=== PATIENT | female | born 2000 | race Caucasian/White ===

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

== ENCOUNTER 2019-04-06 11:16 | Emergency (ER) | payer OTHER ==
[2019-04-06 11:33] VITALS: BP 124/75; PULSE 98; TEMP 98.4; BMI 24.9
--- NOTE | 2019-04-06 12:03 | PDOC ---
History of Present Illness - General Chief Complaint: Rash Stated Complaint: HIVES Time Seen by Provider: 04/06/19 11:57 History Source: Patient - History of Present Illness Initial Comments: 04/06/19 12:40 Chief complaint: Allergic reaction Patient 19-year-old female with history of asthma, acne on minocycline for 3 weeks who states that about a week ago or 2 she started getting a clear bump on her wrist, put ice, she felt it got worse and it bruised and it went away. Patient then developed itching to her upper body that would come and go with some hives. She also felt that her asthma was being impacted and using her inhaler. No fever and patient does not look acutely ill. Patient has a doctor but has not discussed this with her doctor. Patient has prior episodes of allergic reaction in the EMR related to antibiotic. GENERAL/CONSTITUTIONAL: No fever, weakness. dizziness HEAD, EYES, EARS, NOSE AND THROAT: No change in vision. No ear pain or discharge. No sore throat. CARDIOVASCULAR: No chest pain RESPIRATORY: No shortness of breath or cough GASTROINTESTINAL: No pain, nausea, vomiting, diarrhea or constipation GENITOURINARY: No dysuria MUSCULOSKELETAL: No neck or back pain SKIN: +rash NEUROLOGIC: No headache, vertigo, loss of consciousness, or loss of sensation. GENERAL: The patient is awake, alert, and fully oriented, in no acute distress. HEAD: Normal with no signs of trauma. EYES: Pupils equal, round and reactive to light, sclera anicteric, conjunctiva clear. ENT: pharynx: no erythema, no exudate, uvula midline NECK: supple CHEST: clear, nontender, rr ABD: soft, nontender BACK: no tenderness or signs of injury EXTREMITIES: Normal range of motion, no edema. NEUROLOGICAL: Normal speech, normal gait. SKIN: Warm, Dry, no hives but has redness to the areas where she scratched as an hypersensitivity Past History - Past Medical History Allergies/Adverse Reactions: Allergies Allergy/AdvReac Type Severity Reaction Status Date / Time Sulfa (Sulfonamide Allergy Severe Rash Verified 04/09/18 19:29 Antibiotics) Home Medications: Ambulatory Orders traMADol HCL [Ultram -] 50 mg PO BID #10 tablet MDD 2 05/28/18 predniSONE [Deltasone -] 40 mg PO DAILY #10 tablet 04/06/19 Asthma: Yes COPD: No - Immunization History Immunization Up to Date: Yes - Psycho Social/Smoking Cessation Hx Smoking History: Never smoked Have you smoked in the past 12 months: No Information on smoking cessation initiated: No Hx Alcohol Use: No Drug/Substance Use Hx: No Substance Use Type: None *Physical Exam - Vital Signs Last Vital Signs Temp Pulse Resp BP Pulse Ox 98.4 F 98 H 20 124/75 100 04/06/19 11:31 04/06/19 11:31 04/06/19 11:31 04/06/19 11:31 04/06/19 11:31 Medical Decision Making - Medical Decision Making 04/06/19 12:43 Patient with allergic skin reaction, who states it is also bothering her asthma. Lungs are clear. Patient has hypersensitivity where she has been scratching but no obvious hives although she has pictures. Patient will be started on prednisone. Patient started minocycline about 3 weeks ago. She needs to discuss this with her doctor since it is not clear this is causing the problem since she has asthma and allergies in the past. Patient is in no acute distress. The Padma has been helping the hives and she will continue to take that. She has an inhaler, does not need a refill and knows how to use that. And she will be started on prednisone. I told her to call her doctor today to set up an appointment for early next week I also encouraged her to get allergy tested after this episode Discussed issues, findings, results, applicable medications and treatments and follow-up. All these were understood and all questions were answered Discharge - Discharge Information Problems reviewed: Yes Clinical Impression/Diagnosis: Allergic reaction Qualifiers: Encounter type: initial encounter Qualified Code(s): T78.40XA - Allergy, unspecified, initial encounter Condition: Stable Disposition: HOME - Admission No - Additional Discharge Information Prescriptions: predniSONE [Deltasone -] 40 mg PO DAILY #10 tablet - Follow up/Referral Referrals: ON STAFF,NOT [Primary Care Provider] - - Patient Discharge Instructions Patient Printed Discharge Instructions: DI for General Allergic Reactions Additional Instructions: You can continue to take the Padma daily as long as it is working. If it is not working you can take benadryl 25-50 mg every 4 hours for itching take prednisone 40 mg once daily for anther 4 days, start tomorrow take pepcid 20 mg once daily which will help with the reaction and protect your stomach for any upset from the prednisone return to the er if short of breath, difficulty breathing, or getting worse. otherwise follow up with your doctor in 2-3 days - Post Discharge Activity
== END 2019-04-06 12:17 | disposition home or self-care (01) ==
LOC: JERFT 11:16
DX: T78.40XA Allergy, unspecified, initial encounter (principal); Z88.2 Allergy status to sulfonamides; J45.909 Unspecified asthma, uncomplicated
CPT/HCPCS: 99281-25

== ENCOUNTER 2019-04-13 23:17 | Emergency (ER) | payer OTHER ==
[2019-04-13 23:23] VITALS: BP 119/78; PULSE 89; TEMP 98.2; BMI 24.9
[2019-04-14] MEDS ORDERED: predniSONE 20 MG TABLET (UD) PO ONE (01:16)
[2019-04-14] MEDS ORDERED: FAMOTIDINE 10 MG TABLET PO ONE (01:17)
[2019-04-14] MEDS ORDERED: predniSONE 20 MG TABLET (UD) ONE (01:23)
[2019-04-14] MEDS ORDERED: FAMOTIDINE 20 MG TABLET ONE (01:23)
--- NOTE | 2019-04-14 01:25 | PDOC ---
History of Present Illness - General Chief Complaint: Rash Stated Complaint: RASH Time Seen by Provider: 04/14/19 01:07 History Source: Patient Exam Limitations: No Limitations - History of Present Illness Initial Comments: 04/14/19 01:20 19-year-old female with history of asthma, eczema seen here April 06, 2019 for hives. She had been on minocycline for acne treatments for approximately 3 weeks. Has discontinued this medication since hives., Has been taking Padma without much relief. Presents to ED stating itching and hives have worsened over the past 3 days. Denies shortness of breath, difficulty breathing, nausea , new medications, use of new soaps, detergents, new pets. Has a scheduled PMD follow-up for April 18, 2019. ROS: GENERAL/CONSTITUTIONAL: No fever, chills, weakness, dizziness HEAD, EYES, EARS, NOSE AND THROAT: No changes in vision, No ear pain or discharge, No sore throat CARDIOVASCULAR: No chest pain RESPIRATORY: No shortness of breath or cough GASTROINTESTINAL: No pain, nausea, vomiting, diarrhea or constipation GENITOURINARY: No dysuria MUSCULOSKELETAL: No neck or back pain SKIN: Rash and itching NEUROLOGIC: No headache, vertigo, loss of consciousness, or loss of sensation PE: GENERAL: well-appearing, NAD, speaking full sentences HEAD: NCAT EYES: Pupils equal, round and reactive to light, sclera anicteric, conjunctiva clear ENT: pharynx: no erythema, no exudate, uvula midline NECK: supple CHEST: nontender RESP: clear, no w/r/r CARDIO: rrr, no m/g/r ABD: +BS, soft, nontender, non distended BACK: no midline spinal ttp, no CVAT EXTREMITIES: Normal range of motion, no edema NEUROLOGICAL: Normal speech, normal gait SKIN: Scattered small hives to upper extremities, right side of abdomen, bilateral upper extremities sparing palms and soles of feet, warm, Dry Is this a multiple visit Asthma Patient?: No Past History - Past Medical History Allergies/Adverse Reactions: Allergies Allergy/AdvReac Type Severity Reaction Status Date / Time Sulfa (Sulfonamide Allergy Severe Rash Verified 04/09/18 19:29 Antibiotics) Home Medications: Ambulatory Orders traMADol HCL [Ultram -] 50 mg PO BID #10 tablet MDD 2 03/30/19 Prednisone 40 mg PO DAILY 4 Days #4 tablet 04/14/19 Asthma: Yes COPD: No - Immunization History Immunization Up to Date: Yes - Psycho Social/Smoking Cessation Hx Smoking History: Never smoked Have you smoked in the past 12 months: No Information on smoking cessation initiated: No Hx Alcohol Use: No Drug/Substance Use Hx: No Substance Use Type: None *Physical Exam - Vital Signs Last Vital Signs Temp Pulse Resp BP Pulse Ox 98.2 F 89 18 119/78 100 04/13/19 23:21 04/13/19 23:21 04/13/19 23:21 04/13/19 23:21 04/13/19 23:21 Medical Decision Making - Medical Decision Making 04/14/19 01:23 19-year-old female with history of asthma, eczema and recently treated at this ED on April 06, 2019 for hives presents complaining of worsening hives and itching over the past 3 days. Denies shortness of breath, difficulty breathing. IM Benadryl 50 mg P.o. Pepcid 20 mg P.o. prednisone 40 mg Note for work provided Continue taking Padma daily Advised patient to follow-up with PMD and cash applications manager Discharge - Discharge Information Problems reviewed: Yes Clinical Impression/Diagnosis: Hives Condition: Stable Disposition: HOME - Admission No - Follow up/Referral Referrals: ON STAFF,NOT [Primary Care Provider] - - Patient Discharge Instructions Additional Instructions: Take prednisone 40 mg daily for 4 days Take Benadryl 25 mg every 6 hours as needed Take Padma 1 tablet daily Keep your appointment with your primary care doctor for next week Follow-up with a cash applications manager and independent living specialist Return to ED if worsening symptoms - Post Discharge Activity Work/Back to School Note: Back to Work
== END 2019-04-14 01:36 | disposition home or self-care (01) ==
LOC: JER 23:17
PROC: 3E023GC Introduction of Other Therapeutic Substance into Muscle, Percutaneous Approach (ICD-10-PCS; principal; 2019-04-13)
DX: L50.9 Urticaria, unspecified (principal); Z87.09 Personal history of other diseases of the respiratory system; Z87.2 Personal history of diseases of the skin and subcutaneous tissue
CPT/HCPCS: 99284-25

== ENCOUNTER 2020-10-02 21:34 | Emergency (ER) | payer OTHER ==
[2020-10-02 22:00] VITALS: BP 133/84; PULSE 120; TEMP 98.7; BMI 27.6
[2020-10-02] MEDS ORDERED: ACETAMINOPHEN WITH CODEINE 300MG/30MG TABLET PO ONE (22:21)
[2020-10-02] MEDS ORDERED: ACETAMINOPHEN WITH CODEINE 300MG/30MG TABLET ONE (22:33)
[2020-10-02 23:03] LABS: BASO % 0.6 % (0-2.0); EOS % 3.1 % (0-4.5); HEMATOCRIT 42.9 % (32.4-45.2); HEMOGLOBIN 14.4 GM/dL (10.7-15.3); LYMPH % 29.7 % (8-40); MCH 28.1 pg (25.7-33.7); MCHC 33.6 g/dl (32.0-36.0); MEAN CELL VOLUME 83.6 fl (80-96); MEAN PLT VOLUME 8.6 fl (7.5-11.1); NEUT % 53.6 % (42.8-82.8); PLATELET COUNT 283 10^3/uL (134-434); RBC 5.13 M/mm3 (3.60-5.2); RDW 13.1 % (11.6-15.6); WHITE BLOOD COUNT 8.1 K/mm3 (4.0-10.0)
[2020-10-02 23:25] LABS: CALCIUM 8.9 mg/dL (8.5-10.1)
[2020-10-02 23:26] LABS: ALBUMIN 4.1 g/dl (3.4-5.0); BLOOD UREA NITROGEN 11.5 mg/dL (7-18)
[2020-10-02 23:31] LABS: BILIRUBIN,TOTAL 0.2 mg/dL (0.2-1)
[2020-10-02] MEDS ORDERED: LACTATED RINGERS SOLUTION 1000 ML INFUS.BAG IV ONE (23:38)
== END 2020-10-03 02:03 | disposition home or self-care (01) ==
LOC: JER 21:34
DX: R05 Cough (principal); R09.1 Pleurisy
CPT/HCPCS: 36415; 71275-TC; 80053; 84703; 85025; 93005; 93010; 99284-25; C9803; Q9967; U0003; U0005

== ENCOUNTER 2021-02-18 22:30 | Emergency (ER) | payer OTHER ==
[2021-02-18 22:41] VITALS: BP 119/77; PULSE 110; TEMP 99.2; BMI 27.6
[2021-02-18] MEDS ORDERED: ACETAMINOPHEN 325 MG TABLET (FP) PO ONE (23:48)
[2021-02-19] MEDS ORDERED: ACETAMINOPHEN 325 MG TABLET (FP) ONE (00:06)
== END 2021-02-19 01:22 | disposition home or self-care (01) ==
LOC: JER 22:30
DX: J06.9 Acute upper respiratory infection, unspecified (principal); Z11.52 Encounter for screening for COVID-19
CPT/HCPCS: 87651; 87804; 99283-25; C9803; U0003; U0005

== ENCOUNTER 2021-10-19 22:41 | Emergency (ER) | payer OTHER ==
[2021-10-19 23:02] VITALS: BP 117/74; PULSE 85; RESP 20; TEMP 98.2; BMI 27.1
[2021-10-20] MEDS ORDERED: SODIUM CHLORIDE 1,000 ML IV STA (00:08)
[2021-10-20] MEDS ORDERED: METOCLOPRAMIDE HCL INJECTION 10 MG/2 ML VIAL IVPUSH ONE (00:08)
[2021-10-20] MEDS ORDERED: ACETAMINOPHEN 1000 MG/100 ML BAG IVPB ONE (00:08)
[2021-10-20] MEDS ORDERED: ACETAMINOPHEN INJECTION 100 ML IVPB ONE (01:04)
[2021-10-20] MEDS ORDERED: METOCLOPRAMIDE HCL INJECTION 10 MG/2 ML VIAL ONE (01:04)
[2021-10-20] MEDS ORDERED: LIDOCAINE 5% TOPICAL PATCH TP ONE (01:36)
[2021-10-20] MEDS ORDERED: KETOROLAC TROMETHAMINE 15 MG/ML VIAL IVPUSH ONE (01:45)
[2021-10-20] MEDS ORDERED: KETOROLAC TROMETHAMINE 15 MG/ML VIAL ONE (01:58)
[2021-10-20] MEDS ORDERED: LIDOCAINE 5% TOPICAL PATCH ONE (01:59)
[2021-10-20] MEDS ORDERED: LIDOCAINE PATCH REMOVAL MC SCH (22:00)
== END 2021-10-20 03:46 | disposition home or self-care (01) ==
LOC: JER 22:41
PROC: 3E033GC Introduction of Other Therapeutic Substance into Peripheral Vein, Percutaneous Approach (ICD-10-PCS; principal; 2021-10-19)
DX: R51.9 Headache, unspecified (principal)
CPT/HCPCS: 84703; 96361; 96372; 96375; 99284-25

== ENCOUNTER 2021-10-23 00:35 | Emergency (ER) | payer OTHER ==
[2021-10-23 01:24] VITALS: BP 124/84; PULSE 96; RESP 15; TEMP 98.5; BMI 27.1
[2021-10-23] MEDS ORDERED: ACETAMINOPHEN 500 MG TABLET (FP) PO ONE (02:12)
[2021-10-23] MEDS ORDERED: ACETAMINOPHEN 500 MG TABLET (FP) ONE (02:32)
[2021-10-23] MEDS ORDERED: METOCLOPRAMIDE HCL INJECTION 10 MG/2 ML VIAL IVPUSH ONE (02:48)
[2021-10-23] MEDS ORDERED: SODIUM CHLORIDE 1,000 ML IV STA (02:48)
[2021-10-23] MEDS ORDERED: DEXAMETHASONE SOD PHOSPHATE 10 MG/1 ML VIAL IVPUSH ONE (02:49)
[2021-10-23] MEDS ORDERED: METOCLOPRAMIDE HCL INJECTION 10 MG/2 ML VIAL ONE (03:03)
[2021-10-23] MEDS ORDERED: DEXAMETHASONE SOD PHOSPHATE 10 MG/1 ML VIAL ONE (03:03)
== END 2021-10-23 05:50 | disposition home or self-care (01) ==
LOC: JER 00:35
PROC: 3E0333Z Introduction of Anti-inflammatory into Peripheral Vein, Percutaneous Approach (ICD-10-PCS; principal; 2021-10-23)
PROC: 3E033GC Introduction of Other Therapeutic Substance into Peripheral Vein, Percutaneous Approach (ICD-10-PCS; 2021-10-23)
PROC: 3E033GC Introduction of Other Therapeutic Substance into Peripheral Vein, Percutaneous Approach (ICD-10-PCS; 2021-10-23)
PROC: 3E0337Z Introduction of Electrolytic and Water Balance Substance into Peripheral Vein, Percutaneous Approach (ICD-10-PCS; 2021-10-23)
DX: R51.9 Headache, unspecified (principal)
CPT/HCPCS: 70450-TC; 96361; 96374; 96375; 99284-25; J1100

== ENCOUNTER 2022-09-04 18:03 | Emergency (ER) | payer OTHER ==
[2022-09-04 18:10] VITALS: BP 105/67; PULSE 105; RESP 18; TEMP 100.4; BMI 27.1
[2022-09-04] MEDS ORDERED: IBUPROFEN 100 MG/5 ML UNIT DOSE CUPS PO ONE (18:55)
[2022-09-04] MEDS ORDERED: MAG HYDROX/ALH/SMC/DPHA/LIDO 240 ML MOUTHWASH MM STA (19:12)
[2022-09-04] MEDS ORDERED: PENICILLIN G BENZATHINE 1,200,000 UNIT/2 ML PFS IM ONE (19:36)
[2022-09-04] MEDS ORDERED: IBUPROFEN 100 MG/5 ML UNIT DOSE CUPS ONE (20:04)
[2022-09-05] MEDS ORDERED: MAG HYDROX/ALH/SMC/DPHA/LIDO 240 ML MOUTHWASH MM SCH
== END 2022-09-04 20:22 | disposition home or self-care (01) ==
LOC: JERFT 18:03
DX: J02.0 Streptococcal pharyngitis (principal); R50.9 Fever, unspecified; M79.0 Rheumatism, unspecified; Z20.822 Contact with and (suspected) exposure to COVID-19
CPT/HCPCS: 87651; 96372; 99284-25

== ENCOUNTER 2022-10-26 16:41 | Emergency (ER) | payer OTHER ==
[2022-10-26 17:00] VITALS: BP 119/67; PULSE 93; RESP 18; TEMP 99.2; BMI 27.7
[2022-10-26] MEDS ORDERED: SODIUM CHLORIDE 0.9% 500 ML INFUS.BAG IV ONE ×2 (18:07→20:06)
[2022-10-26] MEDS ORDERED: ACETAMINOPHEN 1000 MG/100 ML BAG IVPB ONE (18:09)
[2022-10-26] MEDS ORDERED: ACETAMINOPHEN INJECTION 100 ML IVPB ONE (18:27)
[2022-10-26 18:54] LABS: BASO % 0.6 % (0-2.0); EOS % 1.9 % (0-4.5); HEMATOCRIT 40.4 % (32.4-45.2); HEMOGLOBIN 13.2 GM/dL (10.7-15.3); LYMPH % 27.9 % (8-40); MCH 28.2 pg (25.7-33.7); MCHC 32.6 g/dl (32.0-36.0); MEAN CELL VOLUME 86.5 fl (80-96); MEAN PLT VOLUME 8.4 fl (7.5-11.1); MONO % 8.6 % (3.8-10.2); PLATELET COUNT 285 10^3/uL (134-434); RBC 4.67 M/mm3 (3.60-5.2); RDW 13.2 % (11.6-15.6); WHITE BLOOD COUNT 9.2 K/mm3 (4.0-10.0)
[2022-10-26 19:20] LABS: POTASSIUM 3.9 mmol/L (3.5-5.1)
[2022-10-26 19:21] LABS: ALBUMIN 3.6 g/dl (3.4-5.0); CALCIUM 8.7 mg/dL (8.5-10.1)
[2022-10-26 19:22] LABS: BLOOD UREA NITROGEN 13.5 mg/dL (7-18)
[2022-10-26 19:26] LABS: BILIRUBIN,TOTAL 0.3 mg/dL (0.2-1)
[2022-10-26 20:32] LABS: INR 0.96 (0.83-1.09); PROTHROMBIN TIME (PATIENT) 11.1 SEC (9.7-13.0)
[2022-10-26 20:34] LABS: ACTIVATED PTT 25.5 SECONDS (25.2-36.5)
== END 2022-10-26 22:59 | disposition home or self-care (01) ==
LOC: JER 16:41
PROC: 3E033NZ Introduction of Analgesics, Hypnotics, Sedatives into Peripheral Vein, Percutaneous Approach (ICD-10-PCS; principal; 2022-10-26)
DX: R53.1 Weakness (principal); R42 Dizziness and giddiness; R00.2 Palpitations; S40.022A Contusion of left upper arm, initial encounter; S40.021A Contusion of right upper arm, initial encounter; S80.12XA Contusion of left lower leg, initial encounter; S80.11XA Contusion of right lower leg, initial encounter; R51.9 Headache, unspecified; X58.XXXA Exposure to other specified factors, initial encounter
CPT/HCPCS: 36415; 80053; 84703; 85025; 85610; 85730; 93005; 93010; 96374; 99284-25

== ENCOUNTER 2022-11-30 14:14 | Emergency (ER) | payer OTHER ==
[2022-11-30 14:26] VITALS: BMI 27.7
[2022-11-30] MEDS ORDERED: ACETAMINOPHEN 1000 MG/100 ML BAG IVPB ONE (15:14)
[2022-11-30] MEDS ORDERED: SODIUM CHLORIDE 0.9% 500 ML INFUS.BAG IV ONE (15:14)
[2022-11-30] MEDS ORDERED: FAMOTIDINE 20 MG/50 ML IVPB 20 MG/50 ML MG IVPB ONE ×2 (15:14→15:31)
[2022-11-30] MEDS ORDERED: MAG HYDROX/AL HYDROX/SIMETH 30 ML UNIT-DOSE CUP PO ONE (15:14)
[2022-11-30] MEDS ORDERED: MAG HYDROX/AL HYDROX/SIMETH 30 ML UNIT-DOSE CUP ONE (15:31)
[2022-11-30] MEDS ORDERED: ACETAMINOPHEN INJECTION 100 ML IVPB ONE (15:31)
[2022-11-30] MEDS ORDERED: ONDANSETRON 4 MG/2 ML VIAL IVPUSH ONE (16:14)
[2022-11-30 16:16] LABS: BASO % 0.5 % (0-2.0); EOS % 0.8 % (0-4.5); HEMATOCRIT 38.8 % (32.4-45.2); HEMOGLOBIN 13.1 GM/dL (10.7-15.3); LYMPH % 31.8 % (8-40); MCHC 33.7 g/dl (32.0-36.0); MEAN PLT VOLUME 8.4 fl (7.5-11.1); NEUT % 57.9 % (42.8-82.8); PLATELET COUNT 310 10^3/uL (134-434); RBC 4.51 M/mm3 (3.60-5.2); RDW 13.4 % (11.6-15.6); WHITE BLOOD COUNT 10.8 K/mm3 (4.0-10.0)
[2022-11-30 16:19] LABS: PH,URINE 6.5 (5.0-8.0); URINE APPEARANCE CLEAR; URINE BILIRUBIN NEGATIVE (NEGATIVE); URINE COLOR YELLOW; URINE GLUCOSE (UA) NEGATIVE (NEGATIVE); URINE KETONE NEGATIVE (NEGATIVE); URINE LEUK ESTERASE NEGATIVE (NEGATIVE); URINE NITRITE NEGATIVE (NEGATIVE); URINE PROTEIN NEGATIVE (NEGATIVE)
[2022-11-30] MEDS ORDERED: ONDANSETRON 4 MG/2 ML VIAL ONE (16:21)
[2022-11-30 16:22] LABS: HCG,QUALITATIVE URINE Negative
[2022-11-30 16:28] LABS: ALBUMIN 3.7 g/dl (3.4-5.0); BLOOD UREA NITROGEN 15.4 mg/dL (7-18); CALCIUM 8.9 mg/dL (8.5-10.1)
[2022-11-30 16:32] LABS: CREATININE 0.9 mg/dL (0.55-1.3)
[2022-11-30 16:34] LABS: BILIRUBIN,TOTAL 0.3 mg/dL (0.2-1); TOT PROT 7.2 g/dl (6.4-8.2)
[2022-11-30 16:35] LABS: INR 1.15 (0.83-1.09); PROTHROMBIN TIME (PATIENT) 13.3 SEC (9.7-13.0)
[2022-11-30 16:38] LABS: ACTIVATED PTT 25.7 SECONDS (25.2-36.5)
[2022-11-30 18:18] VITALS: BP 118/76; PULSE 83; RESP 16; TEMP 98.6
== END 2022-11-30 18:18 | disposition home or self-care (01) ==
LOC: JER 14:14
PROC: 3E033GC Introduction of Other Therapeutic Substance into Peripheral Vein, Percutaneous Approach (ICD-10-PCS; principal; 2022-11-30)
PROC: 3E033NZ Introduction of Analgesics, Hypnotics, Sedatives into Peripheral Vein, Percutaneous Approach (ICD-10-PCS; 2022-11-30)
PROC: 3E033GC Introduction of Other Therapeutic Substance into Peripheral Vein, Percutaneous Approach (ICD-10-PCS; 2022-11-30)
DX: R10.33 Periumbilical pain (principal); R11.2 Nausea with vomiting, unspecified; R63.0 Anorexia; R09.81 Nasal congestion; R05.9 Cough, unspecified; S70.12XD Contusion of left thigh, subsequent encounter; R53.83 Other fatigue; X58.XXXD Exposure to other specified factors, subsequent encounter; Z20.822 Contact with and (suspected) exposure to COVID-19
CPT/HCPCS: 0241U-QW; 36415; 80053; 81003; 83690; 84703; 85025; 85610; 85730; 99284-25

== ENCOUNTER 2023-05-10 12:39 | Emergency (ER) | payer OTHER ==
[2023-05-10 12:57] VITALS: BP 126/73; PULSE 96; RESP 18; TEMP 100.5; BMI 29.7
[2023-05-10] MEDS ORDERED: ALBUTEROL SO4 2.5/IPRATROPIUM 0.5 INH SOL 3 ML VIAL.NEB. NEB ONE (13:51)
[2023-05-10] MEDS: ALBUTEROL SO4 2.5/IPRATROPIUM 0.5 INH SOL 3 ML VIAL.NEB. NEB ONE (13:53)
== END 2023-05-10 15:31 | disposition home or self-care (01) ==
LOC: JERFT 12:39
PROC: 3E0F7GC Introduction of Other Therapeutic Substance into Respiratory Tract, Via Natural or Artificial Opening (ICD-10-PCS; principal; 2023-05-10)
DX: R07.89 Other chest pain (principal); R05.9 Cough, unspecified; R50.9 Fever, unspecified; J45.909 Unspecified asthma, uncomplicated
CPT/HCPCS: 71046-TC-FY; 94640; 99283-25

== ENCOUNTER 2023-06-05 11:54 | Emergency (ER) | payer OTHER ==
[2023-06-05 12:00] VITALS: BMI 30.7
[2023-06-05] MEDS ORDERED: ONDANSETRON 4 MG/2 ML VIAL ONE (12:27)
[2023-06-05] MEDS: SODIUM CHLORIDE 1,000 ML IV STA (12:36)
[2023-06-05] MEDS: ONDANSETRON 4 MG/2 ML VIAL IVPUSH ONE (12:36)
[2023-06-05 12:52] LABS: BASO % 0.4 % (0-2.0); HEMATOCRIT 42.6 % (32.4-45.2); HEMOGLOBIN 13.8 GM/dL (10.7-15.3); LYMPH % 13.2 % (8-40); MCH 28.1 pg (25.7-33.7); MCHC 32.4 g/dl (32.0-36.0); MEAN CELL VOLUME 86.5 fl (80-96); MEAN PLT VOLUME 8.2 fl (7.5-11.1); MONO % 5.2 % (3.8-10.2); NEUT % 81.2 % (42.8-82.8); PLATELET COUNT 335 10^3/uL (134-434); RBC 4.93 M/mm3 (3.60-5.2); RDW 13.8 % (11.6-15.6); WHITE BLOOD COUNT 12.2 K/mm3 (4.0-10.0)
[2023-06-05 13:15] LABS: CHLORIDE 105 mmol/L (98-107); POTASSIUM 4.3 mmol/L (3.5-5.1); SODIUM 141 mmol/L (136-145)
[2023-06-05 13:16] LABS: CALCIUM 9.3 mg/dL (8.5-10.1)
[2023-06-05 13:17] LABS: ALBUMIN 4.2 g/dl (3.4-5.0); ANION GAP 8 mmol/L (4-13); BLOOD UREA NITROGEN 13.7 mg/dL (7-18); CO2 27 mmol/L (21-32); GLUCOSE,RANDOM 100 mg/dL (74-106)
[2023-06-05 13:20] LABS: CREATININE 0.8 mg/dL (0.55-1.3); SGOT/AST 19 U/L (15-37); SGPT/ALT 37 U/L (13-61)
[2023-06-05 13:22] LABS: BILIRUBIN,TOTAL 0.5 mg/dL (0.2-1); TOT PROT 8.2 g/dl (6.4-8.2)
[2023-06-05 13:23] LABS: ALK PHOS 82 U/L (45-117)
[2023-06-05 13:33] LABS: EPI CELLS 33 /uL (0-25.1); HYALINE CASTS 0 /uL (0-3.1); PH,URINE 7.5 (5.0-8.0); URINE APPEARANCE CLEAR; URINE BACTERIA 699 /uL (0-1359); URINE BILIRUBIN NEGATIVE (NEGATIVE); URINE COLOR YELLOW; URINE GLUCOSE (UA) NEGATIVE (NEGATIVE); URINE KETONE NEGATIVE (NEGATIVE); URINE LEUK ESTERASE NEGATIVE (NEGATIVE); URINE NITRITE NEGATIVE (NEGATIVE); URINE PROTEIN 1+ (NEGATIVE); URINE RBC 15 /uL (0-23.9); URINE WBC 9 /uL (0-25.8)
[2023-06-05 14:54] VITALS: BP 115/68; PULSE 86; RESP 16; TEMP 98.4
== END 2023-06-05 15:05 | disposition home or self-care (01) ==
LOC: JER 11:54
PROC: 3E033GC Introduction of Other Therapeutic Substance into Peripheral Vein, Percutaneous Approach (ICD-10-PCS; principal; 2023-06-05)
PROC: 3E0337Z Introduction of Electrolytic and Water Balance Substance into Peripheral Vein, Percutaneous Approach (ICD-10-PCS; 2023-06-05)
DX: K29.00 Acute gastritis without bleeding (principal); R11.2 Nausea with vomiting, unspecified; R10.13 Epigastric pain
CPT/HCPCS: 36415; 74177-TC; 80053; 80307; 81003; 83605; 83690; 84703; 85025; 93005; 93010; 99285-25; Q9967

== ENCOUNTER 2024-03-16 19:56 | Emergency (ER) | payer OTHER ==
[2024-03-16 20:10] VITALS: BP 130/76; PULSE 93; RESP 20; TEMP 98.4; BMI 32.2
[2024-03-16] MEDS ORDERED: predniSONE 20 MG TABLET (UD) ONE (20:53)
[2024-03-16] MEDS: predniSONE 20 MG TABLET (UD) PO ONE (20:54)
== END 2024-03-16 20:54 | disposition home or self-care (01) ==
LOC: JERFT 19:56
DX: L29.9 Pruritus, unspecified (principal); M79.89 Other specified soft tissue disorders
CPT/HCPCS: 99283-25